=== PATIENT | male | born 1990 | race Caucasian/White ===

== ENCOUNTER 2019-11-25 17:03 | Emergency (ER) | payer OTHER, SELFPAY ==
[2019-11-25 17:08] VITALS: BP 140/94; PULSE 83; RESP 17; TEMP 36.7; O2SAT 100; BMI 21.6
--- NOTE | 2019-11-25 17:22 | ED.DCSUM_ITS ---
History of Present Illness Informant: Patient Onset: Today Context: Sudden Onset Timing: Continuous Quality and Location: Right Arm Parasthesia Onset: 1626 Current Severity: Mild Maximum Severity: Severe Worsened by: nothing Relieved by: nothing Associated Symptoms: Negative for: Headache, Nausea, Vomiting, Chest Pain Narrative: 28-year-old male who denies any significant past medical history presents to the emergency department complaining of paresthesia in his right arm. This started about an hour prior to arrival. He states it was initially in his arm up to shoulder his neck and the right side of his face that lasted about a minute and he has had some continuous paresthesias in his right forearm wrist and his fourth and fifth fingers. Denies headache, blurry or double vision, loss of vision, difficulty with speech or difficulty with ambulation. Denies any weakness. He has not had paresthesias anywhere else. Denies any neck pain nausea or vomiting. Denies any chest pain. Denies trauma. He is right-hand dominant. No history of similar symptoms. No head injury. He is not on anticoagulation. Prior similar symptoms: No Recent Illness/Hospitalization: No <Enrique Osorio - Last Filed: 11/25/19 17:31> <Rusty Mays - Last Filed: 11/25/19 18:44> Chief Complaint: Numb/Ting Past Medical History Past Medical History: None Surgical History: no surgical history Lives: With Family Smoking Status: Never smoker Alcohol: Occasional Drugs: None <Enrique Osorio - Last Filed: 11/25/19 17:31> <Rusty Mays - Last Filed: 11/25/19 18:44> - Allergies and Home Meds Allergies/Adverse Reactions: Allergies No Known Allergies Allergy (Verified 11/25/19 17:06) Primary Care Physician: Robert Anaya DO [Primary Care Provider] - 1-2 Days if not improving Review of Systems All systems negative except as indicated General: Denies: Chills, Fever, Sweats Eyes: Denies: Visual changes - bilaterally, Diplopia ENT: Denies: Rhinorrhea, Sore throat Cardiovascular: Denies: Chest pain, Palpitations Respiratory: Denies: Dyspnea, Cough, Dyspnea on exertion Gastrointestinal: Denies: Abdominal pain, Nausea, Vomiting, Diarrhea, Melena, Hematochezia Genitourinary: Denies: Dysuria, Hematuria, Frequency Musculoskeletal: Denies: Back pain, Swelling, Extremity Pain Skin: Denies: Rash, Wounds Neurological: Reports: Parasthesia. Denies: Headache, Weakness, Numbness <Enrique Osorio - Last Filed: 11/25/19 17:31> STROKE Vital Signs/Narrative: Vital Signs Temp Pulse Resp BP Pulse Ox 11/25/19 17:08 98.0 F 83 17 140/94 H 100 Inital Vital Signs reviewed: Yes General: Well nourished, Well developed Head: Normocephalic, Atraumatic Eyes: Perrl, EOMI ENT: Moist mucous membranes, No rhinorrhea Neck: Supple, Nontender Cardiovascular: Regular rate, Regular rhythm, No murmurs Respiratory: No distress, CTA bilaterally, Chest nontender Abdomen: Soft, Nontender, Nondistended, Normal bowel sounds Back: Nontender, Normal Inspection Extremities: Nontender, No edema Skin: Normal color, No rash Neurological: Alert, Oriented x3, Cranial nerves II-XII grossly intact, Normal Strength, Normal DTR, Parasthesia - Patient has diminished sensation in his right ulnar aspect of his forearm and his right fourth and fifth fingers. The rest of his sensation was normal. NIH stroke scale was 1 secondary to this Psychological: Normal affect, Normal Mood <Enrique Osorio - Last Filed: 11/25/19 17:31> Vital Signs/Narrative: Vital Signs Temp Pulse Resp BP Pulse Ox 11/25/19 17:08 98.0 F 83 17 140/94 H 100 <Rusty Mays - Last Filed: 11/25/19 18:44> Diagnostic/Tx/Re-eval - Medical Decision Making Stroke Team Activated: No <Enrique Osorio - Last Filed: 11/25/19 17:31> Clinical Impression(s) from Imaging Studies Head/Neck CTA 11/25/19 17:30 IMPRESSION: Normal CTA neck with contrast. Hypoplasia of the right A2 segments. Electronically Signed: Bridger Goodwin DO at 18:25 EDT Tel [phone], Service support , - Medical Decision Making Stroke Team Activated: No - NIH is 0 Patient presents to the emergency department with right-sided paresthesias that lasted less than a minute. His NIH is 0. He is very low risk for stroke and his symptoms have totally resolved. However, he recently had neck manipulation with a chiropractor. Because of this, we did obtain CTA. This was negative for dissection or occlusion. The patient has been resting comfortably without further recurrence of symptoms. He has a very low ABCD 2 score. He was concerned also for exposure to Lyme disease, but with his symptoms I feel this is unlikely but he will be screened. I did business and financial counsel him the importance of following up with his primary care physician as he may end up needing MRI but I feel this can safely be done as an outpatient. The patient is comfortable with this plan of care. Impression 1. Paresthesia right arm and face <Rusty Mays - Last Filed: 11/25/19 18:44> ED Disposition <Enrique Osorio - Last Filed: 11/25/19 17:31> <Rusty Mays - Last Filed: 11/25/19 18:44> - Plan for ED Patient: Instructions: ED Paraesthesias Referrals: Robert Anaya, [Primary Care Provider] - 1-2 Days if not improving
--- NOTE | 2019-11-25 17:30 | CT_ITS ---
STUDY: CTA HEAD AND NECK WITH CONTRAST REASON FOR EXAM: Male, 28 years old. SLURRED SPEECH. R/O STROKE, NUMBNESS, TINGLING TO RT ARM X 1 HR RADIATION DOSAGE (If Supplied By Facility): CTDIvol = ( 30.64 ) mGy, DLP = ( 1623.97 ) mGycm TECHNIQUE: CT angiography was performed with a multi-detector CT scanner. Data acquisition was obtained from the skull base through the vertex following intravenous administration of IV 100mL [id number]-[id number]. MIP images were reconstructed from the axial data set. Post-processing of the angiographic images was performed, with multiplanar reformation and 3D reconstruction. Individualized dose optimization techniques were used for this CT. COMPARISON: No relevant priors. FINDINGS: Normal bilateral petrous carotid arteries. Normal right cavernous carotid artery with a normal supraclinoid bifurcation. Normal left cavernous carotid artery with a normal supraclinoid bifurcation. Normal right A1 segments of the anterior cerebral artery. Normal left A1 segments of the anterior cerebral artery. Normal intact anterior communicating artery (ACOM). Small right A2 segments probably due to hypoplasia or normal variation. Normal right M1 and M2 segments of the middle cerebral arteries, with a normal M1 bifurcation. Normal left M1 and M2 segments of the middle cerebral arteries, with a normal M1 bifurcation. Nonvisualization of the right posterior communicating artery (PCOM). Normal left posterior communicating artery (PCOM). Normal bilateral vertebral arteries. Normal basilar artery with a normal basilar bifurcation. The visualized bilateral superior cerebellar (SCA) arteries are normal. Normal bilateral P1, P2 and visualized P3 segments of the posterior cerebral arteries. There is no demonstrated aneurysm of the [place]. There is no demonstrated abnormality of the visualized brain. AORTIC ARCH: Normal visualized aortic arch. Normal origins of the brachiocephalic, left common carotid, and left subclavian arteries. RIGHT CAROTID ARTERIES: Normal right common carotid artery (CCA). Normal right common carotid bulb. Normal origin of the right internal carotid (ICA) artery without a hemodynamically significant stenosis. Normal visualized cervical portion of the right internal carotid artery. Normal origin of the right external carotid artery (ECA). LEFT CAROTID ARTERIES: Normal left common carotid artery (CCA). Normal left common carotid bulb. Normal origin of the left internal carotid (ICA) artery without a hemodynamically significant stenosis. Normal visualized cervical portion of the left internal carotid artery. Normal origin of the left external carotid artery (ECA). VERTEBRAL ARTERIES: Normal bilateral vertebral arteries. CT/CTA Head AND Neck W/ Contrast IMPRESSION: Normal CTA neck with contrast. Hypoplasia of the right A2 segments. Electronically Signed: Bridger Goodwin DO at 18:25 EDT Tel [phone], Service support ,
[2019-11-25 17:45] LABS: Absolute Lymphocyte Count 1.44 X10^3/uL (0.83-4.51); Absolute Neutrophil Count 3.1 X10^3/uL (2.0-7.7); Basophil# 0.02 X10^3/uL; Basophil% 0.4 % (0-1); Eosinophil# 0.05 X10^3/uL; Hematocrit 45.6 % (40-54); Hemoglobin 15.2 g/dL (13.0-16.5); Lymphocyte # 1.44 X10^3/ul (4.0); Lymphocyte % 28.2 % (19-41); Mean Corp Hgb Conc 33.3 g/dL (32-36); Mean Corpuscular Hgb 30.6 pg (27.0-32.0); Mean Corpuscular Volume 91.9 fL (80-94); Mean Platelet Vol. 9.4 fl (6.2-12.0); Monocyte# 0.52 X10^3/uL; Monocyte% 10.2 % (0-10); NRBC Flagged by Analyzer 0 % (0-5); Neutrophil # 3.06 X10^3/uL (2.7-7.7); Platelet Count 204 K/mm3 (150-450); RBC Distribution Width CV 12.7 % (11.6-14.6); RBC Distribution Width SD 43.1 fl (35.1-43.9); Red Blood Count 4.96 M/mm3 (4.6-6.2); White Blood Count 5.1 K/mm3 (4.4-11.0)
[2019-11-25] MEDS: 0.9% Normal Saline 1,000 ML 999 ML IV (17:49)
[2019-11-25 18:01] LABS: Anion Gap 6 (5-15); BUN 18 mg/dL (7-18); BUN/Creat Ratio 21.7 RATIO (10-20); Calcium,Total 8.8 mg/dL (8.5-10.1); Chloride 103 mmol/L (98-107); Creatinine, Serum 0.83 mg/dL (0.70-1.30); EST Glomerular Filtration Rate 115 mL/min (>60); Est Glom Filt Rate - Afr Amer 139 mL/min (>60); Estimated Creatinine Clearance 129.41 ml/min; Glucose 100 mg/dL (74-106); Potassium 3.5 mmol/L (3.5-5.1); Sodium Level 138 mmol/L (136-145)
[2019-11-25 18:34] LABS: Lyme Ab Screen Interpretation REF LAB
[2019-11-25 19:06] VITALS: BP 128/83; PULSE 78; RESP 17; O2SAT 98
[2019-11-29 20:25] LABS: Lyme Scn Total Ab w/Rflx <0.91 ISR (0.00-0.90)
== END 2019-11-25 19:09 | disposition home or self-care (01) ==
PROVIDERS: Emergency Medicine; Emergency Provider Physician Assistant Medical; PCP Family Medicine
DX: R20.2 Paresthesia of skin (principal); Z11.9 Encounter for screening for infectious and parasitic diseases, unspecified
CPT/HCPCS: 70496; 70498; 80048; 85025; 86618; 96360; 99285; J7030; Q9967; A4216